=== PATIENT | female | born 2000 | race Two or more races ===

== ENCOUNTER 2024-09-05 23:30 | Emergency (ER) | payer MEDICAID, SELFPAY ==
[2024-09-06 00:01] VITALS: BP 111/75; PULSE 90; RESP 18; TEMP 36.6
--- NOTE | 2024-09-06 00:27 | EDRME_ITS ---
Rapid Medical Screening Exam [facility] Arrival date/time: 09/05/24 23:30 23F with history of cholecystectomy presents to ED with 2 days of gen ab pain and some N/V. Patient denies dysuria, vaginal bleeding, and constipation. Chief Complaint: Abdominal Pain Vital signs: Vital Signs Temperature 98 F 09/06/24 00:01 Pulse Rate 90 09/06/24 00:01 Respiratory Rate 18 09/06/24 00:01 Blood Pressure 111/75 09/06/24 00:01 Oxygen Delivery Method Room Air 09/06/24 00:01
[2024-09-06 00:51] LABS: Collection Type, Urine Clean Catch
[2024-09-06 01:17] LABS: Alanine Aminotransferase 60 U/L (10-49); Albumin, Serum 4.6 gm/dL (3.5-5.0); Albumin/Globulin Ratio 1.8 (1.2-2.2); Alkaline Phosphatase 80 U/L (46-116); Anion Gap 3 (7-16); Aspartate Amino Transferase 36 U/L (0-34); BUN/Creatinine Ratio 9 Ratio (12-20); Bilirubin,Total 0.9 mg/dL (0.3-1.2); Blood Urea Nitrogen 11 mg/dL (9-23); Calcium 9.7 mg/dL (8.3-10.6); Calcium (Corrected) 9.7 mg/dL (8.5-10.1); Carbon Dioxide 30.7 mMol/L (20.0-31.0); Chloride 105 mMol/L (98-107); Creatinine (Component) 1.2 mg/dL (0.6-1.3); Globulin 2.6 gm/dL (2.3-3.5); Glucose 92 mg/dL (74-106); Lipase 41 U/L (12-53); Osmolality,Calculated 276 (275-295); Potassium 3.8 mMol/L (3.4-5.1); Sodium 139 mMol/L (136-145); Total Protein 7.2 gm/dL (5.7-8.2); eGFR > 60 See Note
[2024-09-06 01:49] LABS: Basophils % (Auto) 0 % (0-2.5); Eosinophils # (Auto) 0.2 Thou/mm3 (0.0-0.5); Eosinophils % (Auto) 3 % (0-10); Hematocrit 35.9 % (36.0-46.0); Hemoglobin 12.4 g/dL (12.0-16.0); Immature Granulocytes % (Auto) 0 % (0-0); Immature Granulocytes Auto 0.02 Thou/mm3 (0.00-0.00); Lymphocytes # (Auto) 3.1 Thou/mm3 (1.0-4.8); Lymphocytes % (Auto) 34 % (10-50); Mean Corpuscular HGB Conc 34.5 g/dl (31.0-37.0); Mean Corpuscular Hemoglobin 29.7 pg (25.0-35.0); Mean Corpuscular Volume 86 fL (80-100); Monocytes % (Auto) 11 % (0-12); Neutrophils # (Auto) 4.6 Thou/mm3 (1.8-7.7); Neutrophils % (Auto) 52 % (37-80); Nucleated Red Blood Cell % 0 /100 WBC (0); Platelet Count 400 Thou/mm3 (140-440); RDW Standard Deviation 40.9 fL (36.4-46.3); Red Blood Count 4.17 Miln/mm3 (4.00-5.20); White Blood Count 8.9 Thou/mm3 (3.6-11.0)
[2024-09-06 01:58] LABS: Bilirubin,Urine Negative (Negative); Blood,Urine Negative (Negative); Clarity,Urine Clear (Clear/Hazy); Color,Urine Yellow (Lt Yel-Yel); Glucose, Urine Negative (Negative); Ketones,Urine Trace (Negative); Leukocyte Esterase,Urine Negative (Negative); Nitrite,Urine Negative (Negative); PH,Urine 7.5 (5.0-7.0); Protein,Urine 1+ (Neg - Trace); RBC,Urine 4 /hpf (0-3); Squamous Epithelial Cell,Urine 1 /hpf (0-5); WBC,Urine 2 /hpf (0-5)
[2024-09-06 01:59] LABS: HCG Qualitative,Urine Negative
[2024-09-06 02:17] VITALS: BP 108/69; PULSE 91; RESP 18; TEMP 36.6
--- NOTE | 2024-09-06 03:25 | EDNOTE_ITS ---
ED Abdominal Pain RME/HPI General Chief Complaint: Abdominal Pain Stated complaint: ABD PAIN Arrival date/time: 09/05/24 23:30 Limitations: no limitations RME / HPI RME / HPI narrative: 09/05/24 23:30 23F with history of cholecystectomy presents to ED with 2 days of gen ab pain and some N/V. Patient denies dysuria, vaginal bleeding, and constipation. Dr. Tom's Main ED Evaluation: 23-year-old female with last menstrual period 1 month ago that was normal, history of cholecystectomy presents with 2 days of general abdominal pain is 5 out of 10 with no radiation and associated nausea and vomiting x 1. Patient states no bilious or bright red blood in the vomit. No blood in her stool. Patient has no vaginal discharge or vaginal bleeding. She had a bowel movement yesterday is not complaining of constipation. Pain is not improved or worsened with anything specific. No shortness of breath. Patient has not had pain like this in the past. Related Data Home Medications ?Medication ?Instructions ?Recorded ?Confirmed acetaminophen 325 mg tablet 650 mg PO QID PRN Pain 01/08/24 01/08/24 (Tylenol) Previous Rx's ?Medication ?Instructions ?Recorded ibuprofen 800 mg tablet 800 mg PO Q8H PRN pain #30 tabs 09/09/23 Allergies Allergy/AdvReac Type Severity Reaction Status Date / Time No Known Allergies Allergy Verified 09/05/24 23:33 Review of Systems Review of Systems Systems Reviewed: All systems reviewed, normal except as documented Past Medical History Past Medical History NEUROLOGIC: Negative Neurological Disorders or Seizures CARDIAC: Negative Cardiac Disorders or Congestive Heart Failure RESPIRATORY: Negative Chronic Obstructive Pulmonary Disease (COPD) or Asthma GASTROINTESTINAL: Positive Gastrointestinal Disorders, Gall Bladder Disease and Obesity GENITOURINARY: Negative Genitourinary Disorders or Renal Disease REPRODUCTIVE: Positive Previous Pregnancies MUSCULOSKELETAL: Negative Musculoskeletal Disorders ENDOCRINE: Negative Endocrine Disorders, Diabetes Mellitus Type 1 or Diabetes Mellitus Type 2 HEMATOLOGIC: Negative Blood Disorders or Sickle Cell Disease OTHER HISTORY: Negative Autoimmune Disease, Blood Transfusions, Blood Transfusion Reaction, Anesthesia Reactions or Cancer Family History FAMILY HISTORY: Negative Family Psychiatric Problems, Family Respiratory Disorders, Family Cardiac Disorders, Family Gastrointestinal Problems, Family Cancer, Family Surgery or Family Anesthesia Reaction Social History SMOKING STATUS: Never smoker ED Exam General Limitations: Present no limitations General appearance: Present alert and in no apparent distress Head Head exam: Present atraumatic Eye Eye exam: Present normal appearance, PERRL and EOMI ENT ENT exam: Present normal exam, normal oropharynx and mucous membranes moist Neck Neck exam: Present normal inspection, full ROM and trachea midline Chest Chest inspection: Present normal inspection and symmetric chest wall rise Respiratory Respiratory exam: Present normal lung sounds bilaterally Cardiovascular Cardiovascular exam: Present regular rate, normal rhythm and normal heart sounds Abdominal Exam Abdominal exam: Present soft and normal bowel sounds Extremities Exam Extremities exam: Present normal inspection and full ROM Back Exam Back exam: Present normal inspection and full ROM Neurological Exam Neurological exam: Present alert, oriented X3 and CN II-XII intact Psychiatric Psychiatric exam: Present normal affect and normal mood Skin Skin exam: Present warm, dry, intact and normal color Course Quality Measures none Orders Category Date Time Status CT Screening NOW Care 09/06/24 03:[address] abdomen pelvis w con Stat Exams 09/06/24 03:26 Completed CBC Stat Lab 09/06/24 00:49 Completed CMP [Comprehensive Metabolic Panel] Stat Lab 09/06/24 00:49 Completed HCG Qualitative,Urine Stat Lab 09/06/24 00:34 Completed Lipase Stat Lab 09/06/24 00:49 Completed UA [Urinalysis] Stat Lab 09/06/24 00:34 Completed Ketorolac Inj [Toradol Inj] Med 09/06/24 03:27 Discontinued 15 mg IVP X1 ONE Vital Signs Vital signs: Vital Signs Temperature 98 F 09/06/24 00:01 Pulse Rate 90 09/06/24 00:01 Respiratory Rate 18 09/06/24 00:01 Blood Pressure 111/75 09/06/24 00:01 Oxygen Delivery Method Room Air 09/06/24 00:01 Pulse ox is 98% on room air, which is normal according to my interpretation. Abdominal Pain MDM MDM Narrative MDM Narrative:: 23-year-old female with abdominal pain, not , with differential diagnosis includes appendicitis, ovarian cyst, gallbladder disease biliary colic. Patient has a CT scan and Toradol. 0500: CT scan there is no have appendicitis or acute intra-abdominal pathology. Toradol and feels better. Tolerated p.o. Patient data External records reviewed:: [facility] previous records (Per chart review, patient was seen here on 01/27/24 for wound care.) Clinical information provided by:: patient Social determinants that could affect healthcare access:: none Patient has the following chronic illnesses:: none How is presenting disease/condition affected by chronic disease/condition?: no chronic disease Evaluation data The following diagnostics were reviewed and interpreted by me:: lab results and radiology exam(s) Lab and/or radiology exams considered but not ordered:: none Interpretation Summary: CBC is normal, CMP is normal, UA is unremarkable, HCG is negative, lipase is normal, according to my interpretation. ----- I have personally reviewed the radiology data and agree with the radiologist's interpretation below: Telerad Preliminary Report Draft Patient: JAYNE TSE Record#: [id number] Birthdate: 2000 Age/Sex: 23 / F Location: [facility] Attending Dr: Ordering Physician: Date of Service: Procedure(s): Accession Number(s): cc: ~ CT scan of the abdomen and pelvis with intravenous contrast (axial sections with sagittal and coronal reformats) September 06, 2024 0407 hours Clinical History: ABDOMINAL PAIN, R/P APPY No prior study is available for comparison. Findings: The lung bases are clear. The gallbladder is surgically absent. The liver,pancreas, spleen, kidneys and adrenals are unremarkable. No evidence of bowel obstruction. The appendix is within normal limits (coronal images 60-68/160). There are multiple prominent mesenteric lymph nodes. The urinary bladder is unremarkable.The uterus and adnexa are unremarkable. There is no free fluid or free air. The osseous structures are unremarkable. Impression: No evidence of appendicitis or other acute intra-abdominal/pelvic pathology. Other findings as described above. Report Electronically Signed By: Rodney Garcia 09/06/2024 5:05:19 AM [EST] Medications / Prescriptions Medications or Prescriptions considered but not ordered:: none Medication administrations:: Medication Administration History Discontinued Medications Ketorolac Tromethamine (Ketorolac Inj 30 Mg/Ml Vial) 15 mg IVP X1 ONE Stop: 09/06/24 03:28 Last Admin: 09/06/24 03:33 Dose: 15 mg Documented By: SUDHIR see above Consultations Consultation(s) initiated? (list below): No Diagnosis Differential diagnosis abdominal pain: abdominal pain, endometriosis and other (cyst) Most likely diagnosis given after review of the tests above:: vaginal bleeding Admission Indicated Admission indicated?: not indicated Admission Request Was there a request for admission?: No Disposition Plan Disposition Plan: Discharge Discharge Attestation Discharge Attestation: The patient and all family members were given an opportunity to ask questions and understood the discharge instructions. Discharge instructions specifically effects, indications for sooner follow up or return to the emergency department, and the expected course of current diagnosis. Patient condition: Stable Discharge Plan Plan Patient Disposition: HOME (Self Care) Patient condition on transfer: Stable Prescriptions/Referrals Prescriptions/Med Rec: No Action ibuprofen 800 mg tablet 800 mg PO Q8H PRN (Reason: pain) Qty: 30 0RF acetaminophen [Tylenol] 325 mg Tablet 650 mg PO QID PRN (Reason: Pain) Referrals: Scot Torres MD [Primary Care Provider] - In 1 week Problem List Clinical Impression: Abdominal pain Patient/Caregiver Discharge Instructions Diet Instructions: Stay hydrated Pedialyte and Gatorade. Education Materials: Communicating About Pain Additional Instructions: Return to the emergency department if worsening symptoms or other concerns. Avoid greasy or fatty foods. You can take [id number] Tylenol as needed for pain. Today your CAT scan did not show that you have appendicitis and no pelvic cyst. Avoid greasy or greasy foods in the last next 2 days. Print Language: Japanese Stand Alone Forms: Jennifer Award Info., Patient Portal Info Letter
--- NOTE | 2024-09-06 03:26 | XR_ITS ---
Examination: CT abdomen with intravenous contrast CT pelvis with intravenous contrast 2-D coronal reconstructions 2-D sagittal reconstructions Date and time of exam:September 06, 2024 at 0407 hrs. Indications: Onset right lower abdominal pain today. CTDI: vol (mGy) 12.1 DLP: (mGycm) 726 Technique: Multiple axial sections of the abdomen and pelvis have been obtained. 64 slice high-resolution scanner used. 3 mm axial sections have been obtained, post intravenous injection 60 cc [id number] 2-D sagittal, coronal reconstructions obtained. Low dose protocols were performed. One or more of the following dose reduction techniques were used; automated exposure control, adjustment of the mA and/or KV according to patient size, use of iterative reconstruction technique. Findings: No focal liver or splenic lesion Absent gallbladder No pancreatic or adrenal mass No renal or ureteral calculi, no hydronephrosis Aorta normal size Normal appendix Small lymph nodes in the right lower mesentery Anteverted uterus No pelvic mass Bladder intact Osseous structures intact Impression: Normal appendix No acute process in the abdomen or pelvis
[2024-09-06] MEDS: KETOROLAC INJ 30 MG/ML VIAL 15 MG IVP (03:33)
[2024-09-06 04:45] VITALS: BP 112/69; PULSE 78; RESP 18; TEMP 36.6; O2SAT 99
--- NOTE | 2024-09-06 05:06 | PRELIM_ITS ---
CT scan of the abdomen and pelvis with intravenous contrast (axial sections with sagittal and coronal reformats) September 06, 2024 0407 hoursClinical History: ABDOMINAL PAIN, R/P APPYNo prior study is a vailable for comparison. Findings:The lung bases are clear.The gallbladder is surgically absent. The liver,pancreas, spleen, kidneys and adrenals are unremarkable.No evidence of bowel obstruction. The a ppendix is within normal limits (coronal images 60-68/160). There are multiple prominent mesenteric l ymph nodes. The urinary bladder is unremarkable.The uterus and adnexa are unremarkable. There is no f ree fluid or free air.The osseous structures are unremarkable.Impression:No evidence of appendicitis or other acute intra-abdominal/pelvic pathology. Other findings as described above. Report Radha gonzales Signed By: Rodney Garcia 09/06/2024 5:05:19 AM [EST]
[2024-09-06 05:18] VITALS: BP 101/60; PULSE 82; RESP 18; TEMP 36.7; O2SAT 98
== END 2024-09-06 05:19 | disposition home or self-care (01) ==
PROVIDERS: Physician Assistant; Emergency Provider Emergency Medicine; PCP Family Medicine
DX: R10.31 Right lower quadrant pain (principal)
CPT/HCPCS: 36415; 74177; 80053; 81001; 81025; 83690; 85025; 96374; 99285; A4649; J1885; Q9967

== ENCOUNTER 2025-07-06 21:46 | Emergency (ER) | payer MEDICAID, SELFPAY ==
[2025-07-06 21:49] VITALS: BMI 36.8
--- NOTE | 2025-07-06 22:39 | EKG_ITS ---
[facility] Test Date: 2025-07-06 Pat Name: JAYNE TSE Department: Room: - Gender: Female [employer] Operator: : 2000 Requested By: ED Temporary Provider Order Number: [id number] Reading MD: ED Temporary Provider Measurements Intervals [place] Rate: 80 P: 35 WV: 122 QRS: 44 QRSD: 89 T: 4 QT: 355 QTc: 410 Interpretive Statements SINUS RHYTHM MODERATE T-WAVE ABNORMALITY, CONSIDER ANTERIOR ISCHEMIA [-0.1+ mV T-WAVE IN V3/V4] No previous ECG available for comparison /store/S0/[id number]/[id number].pdf
[2025-07-06 22:42] VITALS: BP 117/77; PULSE 81; RESP 18; TEMP 36.7; O2SAT 99
--- NOTE | 2025-07-06 23:30 | PD.EDRME ---
Rapid Medical Screening Exam RME Arrival date/time: 07/06/25 21:46 This is a case of 34-year-old female who came into the emergency room due to chest pain for 3 days patient is 24 weeks denies any abdominal pain denies any vaginal bleeding persistence of the symptoms this patient decided to start consult here in the emergency room Chief Complaint: Chest Pain Time Seen by Provider: 07/06/25 23:13 Vital signs: Vital Signs Temperature 98.1 F 07/06/25 22:42 Pulse Rate 81 07/06/25 22:42 Respiratory Rate 18 07/06/25 22:42 Blood Pressure 117/77 07/06/25 22:42 Pulse Oximetry (%) 99 07/06/25 22:42 Oxygen Delivery Method Room Air 07/06/25 22:42
--- NOTE | 2025-07-06 23:52 | XR_ITS ---
Examination: Complete OB ultrasound greater than 14 weeks Date and time of exam: July 07, 2025, 11:55 PM Indications: Epigastric pain today Findings: Viable intrauterine single fetus with single amniotic sac presentation cephalic Cardiac motion 145 BPM Placenta posterior grade 1. Umbilical cord insertion seen. Amniotic fluid index 11.1 cm Cervix 3.7 cm Ovaries obscured by the fetus. Composite estimated gestational age based on BPD, head circumference, abdominal circumference, femur length is 27 weeks 3 days, estimated weight 1061.1 g. Survey of intracranial anatomy, spinal anatomy, abdominal anatomy, four-chamber heart performed with no abnormalities identified. Impression: Viable intrauterine gestation cephalic presentation.
[2025-07-07 00:20] LABS: Basophils # (Auto) 0.0 Thou/mm3 (0.0-0.2); Basophils % (Auto) 0 % (0-2.5); Eosinophils # (Auto) 0.2 Thou/mm3 (0.0-0.5); Eosinophils % (Auto) 2 % (0-10); Hematocrit 34.2 % (36.0-46.0); Hemoglobin 11.5 g/dL (12.0-16.0); Immature Granulocytes Auto 0.08 Thou/mm3 (0.00-0.00); Lymphocytes # (Auto) 2.7 Thou/mm3 (1.0-4.8); Lymphocytes % (Auto) 22 % (10-50); Mean Corpuscular HGB Conc 33.6 g/dl (31.0-37.0); Mean Corpuscular Hemoglobin 29.9 pg (25.0-35.0); Mean Corpuscular Volume 89 fL (80-100); Monocytes # (Auto) 1.1 Thou/mm3 (0.0-0.8); Monocytes % (Auto) 8 % (0-12); Neutrophils # (Auto) 8.5 Thou/mm3 (1.8-7.7); Neutrophils % (Auto) 68 % (37-80); Nucleated Red Blood Cell # 0.00 Thou/mm3 (0.00-0.00); Nucleated Red Blood Cell % 0 /100 WBC (0); Platelet Count 441 Thou/mm3 (140-440); RDW Standard Deviation 41.8 fL (36.4-46.3); Red Blood Count 3.85 Miln/mm3 (4.00-5.20); White Blood Count 12.5 Thou/mm3 (3.6-11.0)
[2025-07-07 00:43] LABS: B-Type Natriuretic Peptide < 20 pg/mL (0-100)
[2025-07-07 00:49] LABS: Alanine Aminotransferase 18 U/L (10-49); Albumin, Serum 4.0 gm/dL (3.5-5.0); Albumin/Globulin Ratio 1.5 (1.2-2.2); Alkaline Phosphatase 105 U/L (46-116); Anion Gap 11 (7-16); Aspartate Amino Transferase 14 U/L (0-34); BUN/Creatinine Ratio 8 Ratio (12-20); Bilirubin,Total 0.5 mg/dL (0.3-1.2); Blood Urea Nitrogen 5 mg/dL (9-23); Calcium 9.7 mg/dL (8.3-10.6); Calcium (Corrected) 9.7 mg/dL (8.5-10.1); Carbon Dioxide 23.6 mMol/L (20.0-31.0); Chloride 105 mMol/L (98-107); Creatinine (Component) 0.6 mg/dL (0.6-1.3); Estimated Creatinine Clearance 168.1 mL/min (>60); Globulin 2.6 gm/dL (2.3-3.5); Glucose 101 mg/dL (74-106); Osmolality,Calculated 276 (275-295); Potassium 3.7 mMol/L (3.4-5.1); Sodium 140 mMol/L (136-145); Total Protein 6.6 gm/dL (5.7-8.2); Troponin I < 0.002 ng/mL (0.0-0.045); eGFR > 60 See Note
[2025-07-07 01:01] LABS: Collection Type, Urine Clean Catch
[2025-07-07 01:12] LABS: Beta HCG,Quantitative 8228 mIU/mL (<5.0)
[2025-07-07 01:26] LABS: Bacteria,Urine Rare; Bilirubin,Urine Negative (Negative); Blood,Urine Negative (Negative); Calcium Oxalate Crystals,Urine 2+; Color,Urine Yellow (Lt Yel-Yel); Glucose, Urine Negative (Negative); Ketones,Urine Negative (Negative); Leukocyte Esterase,Urine Negative (Negative); Nitrite,Urine Negative (Negative); PH,Urine 6.0 (5.0-7.0); Protein,Urine Trace (Neg - Trace); RBC,Urine 6 /hpf (0-3); Specific Gravity,Urine 1.019 (1.001-1.035); Squamous Epithelial Cell,Urine 33 /hpf (0-5); Urobilinogen,Urine Negative mg/dL (0.0-1.0); WBC,Urine 8 /hpf (0-5)
[2025-07-07 01:28] LABS: Clarity,Urine Cloudy (Clear/Hazy)
--- NOTE | 2025-07-07 01:29 | PRELIM_ITS ---
Obstetric ultrasound. July 06, 2025 2350 hours Clinical history: Rule out demise Findings: There is a gravid uterus with a live fetus in cephalicpresentation of mean gestational age 27weeks and 3days (by biometry). cardiac activity is present at a heart rate of 145beats per minute. The placenta is posteriorin location, maturity grade 1. There is no evidence of placenta previa or retroplacental hemorrhage.The cervical length is 3.7cm. Amniotic fluid is adequate (JOSELINE = 11.1cm). Estimated weight is 1061.1grams. Estimated due date by ultrasound is 10/02/2025. 4 chamber heart is seen. 3-vessel umbilical cord is seen. The stomach, spine, bladder is seen. Impression: Gravid uterus with a single live fetus in cephalicpresentation of mean gestational age 27 weeks 3 days. Report Electronically Signed By: Srini Canales 07/07/2025 1:29:29 AM [EST]
--- NOTE | 2025-07-07 01:37 | PD.EDCHEST ---
ED Chest Pain RME/HPI General Chief Complaint: Chest Pain Stated Complaint: CHEST PAIN DYSPNEA Time Seen by Provider: 07/06/25 23:13 Arrival date/time: 07/06/25 21:46 RME / HPI RME / HPI narrative: 07/06/25 21:46 This is a case of 34-year-old female who came into the emergency room due to chest pain for 3 days patient is 24 weeks denies any abdominal pain denies any vaginal bleeding persistence of the symptoms this patient decided to start consult here in the emergency room Dr. Tse?s Main ED Evaluation: 24yo female with EGA 24 weeks presenting with ongoing flu-like symptoms (chills, nasal congestion, cough), but denies any body aches x 4 days. Patient has left parasternal chest pain with pleuritic component. No dizziness, lightheadedness, palpitations, or near syncope. PMH includes glucose intolerance. PSH includes cholecystectomy. Social history unremarkable. NKDA. Related Data Home Medications ?Medication ?Instructions ?Recorded ?Confirmed acetaminophen 325 mg tablet 650 mg PO QID PRN Pain 01/08/24 01/08/24 (Tylenol) Previous Rx's ?Medication ?Instructions ?Recorded ibuprofen 800 mg tablet 800 mg PO Q8H PRN pain #30 tabs 09/09/23 acetaminophen 120 mg-codeine 12 5 ml PO Q6H PRN pain #200 mL 07/07/25 mg/5 mL (5 mL) oral solution prednisolone 15 mg/5 mL oral 45 mg (15 mL) PO QDAY 5 days #75 mL 07/07/25 solution Allergies Allergy/AdvReac Type Severity Reaction Status Date / Time No Known Allergies Allergy Verified 07/06/25 21:54 Review of Systems Review of Systems Systems Reviewed: All systems reviewed, normal except as documented Past Medical History Past Medical History NEUROLOGIC: Negative Neurological Disorders or Seizures CARDIAC: Negative Cardiac Disorders or Congestive Heart Failure RESPIRATORY: Negative Chronic Obstructive Pulmonary Disease (COPD) or Asthma GASTROINTESTINAL: Positive Gastrointestinal Disorders, Gall Bladder Disease and Obesity GENITOURINARY: Negative Genitourinary Disorders or Renal Disease REPRODUCTIVE: Positive Previous Pregnancies MUSCULOSKELETAL: Negative Musculoskeletal Disorders ENDOCRINE: Negative Endocrine Disorders, Diabetes Mellitus Type 1 or Diabetes Mellitus Type 2 HEMATOLOGIC: Negative Blood Disorders or Sickle Cell Disease OTHER HISTORY: Negative Autoimmune Disease, Blood Transfusions, Blood Transfusion Reaction, Anesthesia Reactions or Cancer Family History FAMILY HISTORY: Negative Family Psychiatric Problems, Family Respiratory Disorders, Family Cardiac Disorders, Family Gastrointestinal Problems, Family Cancer, Family Surgery or Family Anesthesia Reaction Social History SMOKING STATUS: Never smoker ED Exam Narrative Physical exam: GENERAL APPEARANCE: alert and oriented x 4, well-developed, well-nourished, no acute distress VITALS: All vitals were reviewed and the pulse ox is 99% on room air, which is normal according to my interpretation. HEENT: Normocephalic, atraumatic; pupils equal, round, reactive to light; EOMI; mucous membranes pink, moist; erythema to the posterior pharynx with punctate vesicles, no exudative lesions or tonsillar hypertrophy, no submandibular adenopathy NECK: Supple LUNGS: CTABL; no wheezes, no rales, no rhonchi CHEST: reproducible tenderness to the left parasternal region without any crepitus or step-off HEART: Regular rate, regular rhythm; normal S1, S2; no murmurs ABDOMEN: non distended; normal BS; soft, no tenderness, no guarding, no rebound; no masses, no organomegaly, no hernia BACK: no CVA tenderness EXTREMITIES: atraumatic; no edema; no swelling to the BUE or BLE NEUROLOGIC: awake; alert and oriented x4; cranial nerves II-XII grossly intact; no focal sensory or motor deficits PSYCHIATRIC: appropriate mood and affect SKIN: warm, dry, normal color; no rashes Course Quality Measures none Orders Category Date Time Status EKG (ED ONLY) *Do not use* NOW Care 07/06/25 22:39 Completed EKG (ED Only) Stat Exams 07/06/25 22:39 Draft US OB >= 14 weeks Fetus Stat Exams 07/06/25 23:52 Taken ABO/RH Type Stat Lab 07/06/25 23:29 Completed BNP [B-Type Natriuretic Peptide] Stat Lab 07/06/25 23:29 Completed Beta HCG,Quantitative Stat Lab 07/06/25 23:28 Completed CBC Stat Lab 07/06/25 23:28 Completed Comprehensive Metabolic Panel Stat Lab 07/06/25 23:28 Completed Troponin I Stat Lab 07/06/25 23:28 Completed Urinalysis Stat Lab 07/06/25 00:47 Completed Vital Signs Vital signs: Vital Signs Temperature 98.1 F 07/06/25 22:42 Pulse Rate 81 07/06/25 22:42 Respiratory Rate 18 07/06/25 22:42 Blood Pressure 117/77 07/06/25 22:42 Pulse Oximetry (%) 99 07/06/25 22:42 Oxygen Delivery Method Room Air 07/06/25 22:42 Chest Pain MDM Narrative MDM Narrative:: Scribe Attestation: 07/07/25 Ama Hall am scribing for and in the presence of Dr. Tse. 24yo female with EGA 24 weeks presenting with ongoing flu-like symptoms (chills, nasal congestion, cough), but denies any body aches x 4 days. Patient has left parasternal chest pain with pleuritic component. Please see PE findings. Lab markers demonstrate WBC count 12.5, mild anemia with Hgb 11.5, slight thrombocytosis with Plt count of 441. Chemistries unremarkable, troponin and BNP undetected. UA contaminated. EKG demonstrates nonpathological T-wave inversions and normal axis. In the absence of tachycardia, tachypnea, and hypoxia, will not pursue the diagnosis of PE at this time. Chest pain appears to be reproducible likely secondary to pleurisy. Of note, patient had a stress test performed which was remarkable. Patient is stable to be discharged home. Will prescribe Prelone and Tylenol with Codeine. Precaution instructions issued. Dx: pleurisy Patient data External records reviewed:: [facility] previous records (Per chart review, patient was seen here on 09/06/24 for abdominal pain.) Clinical information provided by:: patient Social determinants that could affect healthcare access:: none Patient has the following chronic illnesses:: none How is presenting disease/condition affected by chronic disease/condition?: no chronic disease Evaluation data The following diagnostics were reviewed and interpreted by me:: lab results, radiology exam(s) and EKG tracing(s) Lab and/or radiology exams considered but not ordered:: none Interpretation Summary: EKG done at 2245, sinus rhythm, rate of 80, asymmetric T-wave inversions without ST depression in inferior septal leads, no ectopy, normal axis, according to my interpretation. Telerad Preliminary Report Draft Patient: JAYNE TSE. Record#: [id number] Birthdate: 2000 Age/Sex: 24 / F Location: [facility] Attending Dr: Ordering Physician: Date of Service: Procedure(s): Accession Number(s): cc: ~ Obstetric ultrasound. July 06, 2025 2350 hours Clinical history: Rule out demise Findings: There is a gravid uterus with a live fetus in cephalicpresentation of mean gestational age 27weeks and 3days (by biometry). cardiac activity is present at a heart rate of 145beats per minute. The placenta is posteriorin location, maturity grade 1. There is no evidence of placenta previa or retroplacental hemorrhage.The cervical length is 3.7cm. Amniotic fluid is adequate (JOSELINE = 11.1cm). Estimated weight is 1061.1grams. Estimated due date by ultrasound is 10/02/2025. 4 chamber heart is seen. 3-vessel umbilical cord is seen. The stomach, spine, bladder is seen. Impression: Gravid uterus with a single live fetus in cephalicpresentation of mean gestational age 27 weeks 3 days. Report Electronically Signed By: Srini Canales 07/07/2025 1:29:29 AM [EST] Medications / Prescriptions Medications or Prescriptions considered but not ordered:: none Medication administrations:: none Consultations Consultation(s) initiated? (list below): No Diagnosis Chest Pain Differential Diagnosis: pneumothorax, atypical chest pain, st elevation myocardial infarction, costochondritis and other (NSTEMI, pleurisy) Most likely diagnosis given after review of the tests above:: see clinical impression below Admission Indicated Admission indicated?: not indicated Admission Request Was there a request for admission?: No Disposition Plan Disposition Plan: Discharge Discharge Attestation Discharge Attestation: The patient and all family members were given an opportunity to ask questions and understood the discharge instructions. Discharge instructions specifically effects, indications for sooner follow up or return to the emergency department, and the expected course of current diagnosis. Patient condition: Stable Discharge Plan Plan Patient Disposition: HOME (Self Care) Prescriptions/Referrals Prescriptions/Med Rec: New prednisolone 15 mg/5 mL solution 45 mg PO QDAY 5 Days Qty: 75 0RF acetaminophen-codeine 120 mg-12 mg /5 mL (5 mL) solution 5 ml PO Q6H PRN (Reason: pain) Qty: 200 0RF No Action ibuprofen 800 mg tablet 800 mg PO Q8H PRN (Reason: pain) Qty: 30 0RF acetaminophen [Tylenol] 325 mg Tablet 650 mg PO QID PRN (Reason: Pain) Referrals: No Primary/Family,Physician [Primary Care Provider] - In 1 week Problem List Clinical Impression: Pleurisy, Systemic viral illness Patient/Caregiver Discharge Instructions Discharge Activity: activity as tolerated Diet Instructions: Force fluids Education Materials: ED Pleurisy, ED Viral Syndrome (Adult) Additional Instructions: Reports/medication as directed/follow-up with [facility] [employer] physician within 7 to 10 days as needed return if worsening Print Language: Danish
[2025-07-07] MEDS: prednisoLONE LIQD 15 MG/5 ML UDC 45 MG PO (02:15)
== END 2025-07-07 02:31 | disposition home or self-care (01) ==
PROVIDERS: Nurse Practitioner Family; Emergency Provider Emergency Medicine
DX: O98.512 Other viral diseases complicating pregnancy, second trimester (principal); B34.9 Viral infection, unspecified; O26.892 Other specified pregnancy related conditions, second trimester; R09.1 Pleurisy; Z3A.27 27 weeks gestation of pregnancy
CPT/HCPCS: 36415; 76805; 80053; 81001; 83880; 84484; 84702; 85025; 86900; 86901; 93005; 99284; J7510

== ENCOUNTER 2025-08-26 13:00 | Observation (INO) | payer MEDICAID, SELFPAY ==
[2025-08-26] VITALS (20 sets, daily range): BP systolic 123; BP diastolic 72; PULSE 81–101; RESP 18–99; TEMP 37.2; O2SAT 92–99; BMI 38.2
--- NOTE | 2025-08-26 13:56 | XR_ITS ---
Examination: Complete OB ultrasound greater than 14 weeks Date and time of exam: 08/26/2025, 12/11 p.m. INDICATION: Contractions and leaking today COMPARISON: OB ultrasound 07/06/2025. Findings: Viable intrauterine single fetus with single amniotic sac in cephalic position. cardiac cavity = 136 bpm. Composite estimated gestational age based on BPD, head circumference, abdominal circumference, femur length is 34 weeks, 3 days. Sonographic GINGER 10/04/2025. Clinical age is 34 weeks 4 days and clinical GINGER 10/03/2025. EFW = 2409.8 g +/-357 g. Fundal placenta, grade 2. No abruption. JOSELINE = 9.5 cm. Survey of intracranial anatomy, spinal anatomy, abdominal anatomy, four-chamber heart performed with no abnormalities identified. The left renal pelvis measures 3 mm wide but otherwise no hydronephrosis by size criteria. The maternal right ovary measures after 3.4 cm and the maternal left ovary measures up to 3.9 cm. Both maternal ovaries demonstrate intact blood flow bilaterally. IMPRESSION: Single live IUP in cephalic position. No acute abnormalities detected. Appropriate interval growth.
[2025-08-26 14:01] LABS: Collection Type, Urine Clean Catch
[2025-08-26 14:18] LABS: ROM Kit Exp Date# 041128; ROM Kit Lot # 53106258; ROM Swab Mixed By: CR; Swb Mxed in Solvent 1 min? Yes
[2025-08-26 14:19] LABS: Rupture of Fetal Membranes Negative (Negative)
[2025-08-26 15:08] LABS: Bilirubin,Urine Negative (Negative); Blood,Urine Negative (Negative); Clarity,Urine Clear (Clear/Hazy); Color,Urine Colorless (Lt Yel-Yel); Glucose, Urine Negative (Negative); Ketones,Urine Negative (Negative); Leukocyte Esterase,Urine Negative (Negative); Nitrite,Urine Negative (Negative); PH,Urine 7.0 (5.0-7.0); Protein,Urine Negative (Neg - Trace); RBC,Urine 1 /hpf (0-3); Specific Gravity,Urine 1.006 (1.001-1.035); Squamous Epithelial Cell,Urine 1 /hpf (0-5); Urobilinogen,Urine Negative mg/dL (0.0-1.0); WBC,Urine < 1 /hpf (0-5)
== END 2025-08-26 15:23 | disposition home or self-care (01) ==
PROVIDERS: Admitting Provider Specialist; Visit Provider Specialist
DX: O47.03 False labor before 37 completed weeks of gestation, third trimester (principal); Z3A.34 34 weeks gestation of pregnancy
CPT/HCPCS: 59025; 59899; 76805; 81001; 84112; 87086

== ENCOUNTER 2025-09-25 11:34 | Inpatient (IN) | payer MEDICAID, SELFPAY ==
[2025-09-25] VITALS (47 sets, daily range): BP systolic 103–143; BP diastolic 58–92; PULSE 83–123; RESP 17–96; TEMP 36.8–37.1; O2SAT 89–100; BMI 39.2
[2025-09-25] MEDS: RINGERS LACTATED 1000 ML 1,000 ML 100 ML IV (12:50)
--- NOTE | 2025-09-25 12:52 | PD.LDHP ---
Documentation for date of: 09/25/25 OB Labor/Induct. HPI History of Present Illness : 2 Para: 1 Term pregnancies: 1 pregnancies: 0 Living children: 1 History of Abortions: Spontaneous and Elective: 0 History of Vaginal deliveries: 1 History of sections: No History of : No Date of last menstrual period: 12/27/24 GINGER: 10/03/25 Gestational age based on last menstrual period: 38 History of present illness: Dictated STAT line in [facility] #9: [id number] History of Present Adequate Care: Yes Past Medical History Surgical History SURGICAL: Negative Section Meds Home Medications and Allergies Home Medications ?Medication ?Instructions ?Recorded ?Confirmed ?Type vrtvlad-vtrp-CK 40 mg-1 1 tab PO .PO 08/26/25 08/26/25 History mg chewable tablet Allergies Allergy/AdvReac Type Severity Reaction Status Date / Time No Known Allergies Allergy Verified 09/25/25 12:16 OB Exam Physical Exam Vital signs: Temp Pulse Resp BP Pulse Ox 98.2 F 86 18 119/80 99 09/25/25 11:44 09/25/25 12:46 09/25/25 11:44 09/25/25 12:46 09/25/25 12:26
--- NOTE | 2025-09-25 13:01 | ESHP_ITS ---
RE: JAYNE TSE : 2000 DATE OF ADMISSION: 09/25/2025 HISTORY OF PRESENT ILLNESS: This is a 24-year-old 2, para 1-0-0-1, with due date of 10/03 with intrauterine at 38 weeks and 6 days, who presents to labor and delivery complaining of contractions and is noted to be in labor. She is a gestational diabetic, diet-controlled. Her most recent ultrasound on 09/11 showed overall growth at the 30th percentile. She denies any leaking or bleeding. She reports normal movement. ALLERGIES: NO KNOWN DRUG ALLERGIES. MEDICATIONS: multivitamin 1 p.o. daily. PAST MEDICAL HISTORY: Gestational diabetes mellitus class A1. Lumbosacral back pain. Rubella non-immune. FAMILY HISTORY: Denies. PAST SURGICAL HISTORY: Cholecystectomy. OBSTETRIC HISTORY: In 07/2019, 40-week normal vaginal delivery, male, 7.5 pounds, no complications. REVIEW OF SYSTEMS: She denies any chest pain, palpitations, cough, fever, shortness of breath, or lower extremity pain. She denies any flank pain. PHYSICAL EXAMINATION: VITAL SIGNS: Blood pressure is 117/80, heart rate 99, respirations 18, temperature is 98.2, pulse ox is 95% on room air, weight is 232 pounds. HEENT: Oropharynx and sclerae clear. LUNGS: Clear to auscultation bilaterally. HEART: Regular rate and rhythm. ABDOMEN: Gravid, consistent with 7.25 pounds. PELVIC: Per RN notes is 5 cm, 80%, -2, vertex, intact. EXTREMITIES: Nontender. SKIN: No gross rashes or lesion. NEUROLOGIC: No focal deficit. Category 1 tracing. ASSESSMENT AND PLAN: Intrauterine at 38 weeks and 6 days, gestational diabetes mellitus class A1, well controlled. Labor. Anticipate spontaneous vaginal delivery. Informed consent was obtained. The patient was made aware of the risks, complications, alternatives, and benefits of the proposed procedure, and she agrees. She is aware of the risk of operative vaginal delivery and delivery and agrees with these modes of delivery if indicated. DT: 12:51:48 TT: 13:00:00 Ref: [id number] - TID: [id number]
[2025-09-25 14:37] LABS: Syphilis Nonreactive (Nonreactive)
[2025-09-25 14:58] LABS: Basophils # (Auto) 0.0 Thou/mm3 (0.0-0.2); Basophils % (Auto) 0 % (0-2.5); Eosinophils # (Auto) 0.1 Thou/mm3 (0.0-0.5); Eosinophils % (Auto) 1 % (0-10); Hematocrit 35.8 % (36.0-46.0); Hemoglobin 12.2 g/dL (12.0-16.0); Immature Granulocytes Auto 0.04 Thou/mm3 (0.00-0.00); Lymphocytes # (Auto) 1.9 Thou/mm3 (1.0-4.8); Lymphocytes % (Auto) 19 % (10-50); Mean Corpuscular HGB Conc 34.1 g/dl (31.0-37.0); Mean Corpuscular Hemoglobin 29.8 pg (25.0-35.0); Mean Corpuscular Volume 87 fL (80-100); Monocytes # (Auto) 0.8 Thou/mm3 (0.0-0.8); Monocytes % (Auto) 8 % (0-12); Neutrophils # (Auto) 6.9 Thou/mm3 (1.8-7.7); Neutrophils % (Auto) 71 % (37-80); Nucleated Red Blood Cell # 0.00 Thou/mm3 (0.00-0.00); Nucleated Red Blood Cell % 0 /100 WBC (0); Platelet Count 373 Thou/mm3 (140-440); RDW Standard Deviation 44.3 fL (36.4-46.3); Red Blood Count 4.10 Miln/mm3 (4.00-5.20); White Blood Count 9.7 Thou/mm3 (3.6-11.0)
[2025-09-25 15:21] LABS: Amphetamine/Metham Scrn,Ur OB Negative (Negative); Benzoylecgonine Screen, Ur OB Negative (Negative); Opiate Screen,Urine OB Negative (Negative); THC Screen,Urine OB Negative (Negative)
[2025-09-25] MEDS: OXYTOCIN in NS 30 units 30 UNIT/500 ML BAG IV (16:06)
[2025-09-25 16:12] LABS: Hepatitis B Surface Antigen Non Reactive (Non React); Rubella, IgG Antibody NonReact(Not Immune)
[2025-09-25 16:24] LABS: HIV (1&2) Antibody Rapid Non-Reactive
--- NOTE | 2025-09-25 16:57 | PD.LDHP ---
Documentation for date of: 09/25/25 OB Labor/Induct. HPI History of Present Illness : 2 Para: 1 Term pregnancies: 1 pregnancies: 0 Living children: 1 History of Abortions: Spontaneous and Elective: 0 History of Vaginal deliveries: 1 History of sections: No History of : No Date of last menstrual period: 12/27/24 GINGER: 10/03/25 Gestational age based on last menstrual period: 37 History of present illness: Dictated STAT line in [facility] #9: [id number] History of Present Adequate Care: Yes Labs Labs: Negative: RPR, Chlamydia, Gonorrhea and Group Beta Strep and Unknown: Hepatitis B, Rubella Titre, HIV, Herpes Type 1, Herpes Type 2 and Covid-19 Past Medical History Surgical History SURGICAL: Negative Section Meds Home Medications and Allergies Home Medications ?Medication ?Instructions ?Recorded ?Confirmed ?Type lpyhymy-hraa-MH 40 mg-1 1 tab PO .PO 08/26/25 08/26/25 History mg chewable tablet Allergies Allergy/AdvReac Type Severity Reaction Status Date / Time No Known Allergies Allergy Verified 09/25/25 12:16 OB Exam Physical Exam Vital signs: Temp Pulse Resp BP Pulse Ox 98.2 F 88 18 103/63 100 09/25/25 11:44 09/25/25 14:56 09/25/25 11:44 09/25/25 14:56 09/25/25 16:53 OB Results Labs 09/25/25 14:40 Labs: Short CBC 09/25/25 Range/Units 14:40 WBC 9.7 (3.6-11.0) Thou/mm3 Hgb 12.2 (12.0-16.0) g/dL Hct 35.8 L (36.0-46.0) % Plt Count 373 (140-440) Thou/mm3
[2025-09-25] MEDS: OXYTOCIN in NS 20 units 20 UNIT/1,000 ML BAG 125 UNIT IV (18:08)
--- NOTE | 2025-09-25 18:20 | PD.LDDS ---
DS: Providers Provider Date of admission: 09/25/25 12:32 Primary care physician: Scot Torres MD Admitting Provider: Yeison Garcia MD Attending Provider on Admission: Yeison Garcia MD Attending Provider on DC: Yeison Garcia MD Discharging Provider: Yeison Garcia MD DS: Diagnosis Problem List Completed Was Problem List Reviewed/Reconciled?: Yes Summary/Hosp Course Brief History: Dictated STAT line in [facility] #9: [id number] Time Spent with Patient Time attestation: Total time spent providing and/or coordinating discharge services: Exam Vital Signs Temp Pulse Resp BP Pulse Ox 98.2 F 87 18 132/92 H 100 09/25/25 11:44 09/25/25 17:09 09/25/25 11:44 09/25/25 17:09 09/25/25 18:07 Discharge Plan Plan Patient Disposition: HOME (Self Care) Patient condition on transfer: Stable Prescriptions/Referrals Prescriptions/Med Rec: New ibuprofen 600 mg tablet 600 mg PO Q6H PRN (Reason: pain) Qty: 30 0RF Continued lpakjhl-oruc-XO 40-1 mg tablet,chewable 1 tab PO .PO Referrals: Scot Torres MD [Primary Care Provider, Family Practice] Patient/Caregiver Discharge Instructions Discharge Activity: activity as tolerated Other Discharge Activity Instructions:: Follow up office 6 weeks. Education Materials: After a Vaginal , Nutrition While , Understanding Depression, : Caring for Yourself Print Language: Mongolian Activity Restrictions/Additional Instructions: Cynthia july con [place] doctor en seis semanas Stand Alone Forms: Jennifer Award Info., Patient Portal Info Letter Discharge Order Discharge Orders: Discharge (Routine); Ordered 09/26/25 Ordered By: Yeison Garcia Planned Discharge Date 09/26/25
[2025-09-25] MEDS: IBUPROFEN TAB 400 MG TABLET 800 MG PO (18:22)
[2025-09-26 00:07] LABS: Basophils # (Auto) 0.0 Thou/mm3 (0.0-0.2); Basophils % (Auto) 0 % (0-2.5); Eosinophils # (Auto) 0.0 Thou/mm3 (0.0-0.5); Eosinophils % (Auto) 0 % (0-10); Hematocrit 33.3 % (36.0-46.0); Hemoglobin 11.3 g/dL (12.0-16.0); Immature Granulocytes Auto 0.05 Thou/mm3 (0.00-0.00); Lymphocytes # (Auto) 1.4 Thou/mm3 (1.0-4.8); Lymphocytes % (Auto) 9 % (10-50); Mean Corpuscular HGB Conc 33.9 g/dl (31.0-37.0); Mean Corpuscular Hemoglobin 29.5 pg (25.0-35.0); Mean Corpuscular Volume 87 fL (80-100); Monocytes # (Auto) 0.9 Thou/mm3 (0.0-0.8); Monocytes % (Auto) 5 % (0-12); Neutrophils # (Auto) 13.9 Thou/mm3 (1.8-7.7); Neutrophils % (Auto) 86 % (37-80); Nucleated Red Blood Cell # 0.00 Thou/mm3 (0.00-0.00); Nucleated Red Blood Cell % 0 /100 WBC (0); Platelet Count 364 Thou/mm3 (140-440); RDW Standard Deviation 44.6 fL (36.4-46.3); Red Blood Count 3.83 Miln/mm3 (4.00-5.20); White Blood Count 16.3 Thou/mm3 (3.6-11.0)
[2025-09-26 00:09] VITALS: BP 116/76; RESP 18; TEMP 36.9; O2SAT 97
[2025-09-26] MEDS: IBUPROFEN TAB 400 MG TABLET 800 MG PO ×2 (00:18→11:58)
[2025-09-26 03:37] VITALS: BP 102/65; RESP 16; TEMP 36.8; O2SAT 98
--- NOTE | 2025-09-26 06:03 | ESPR_ITS ---
RE: JAYNE TSE : 2000 DATE OF SERVICE: 09/26/2025 SUBJECTIVE: day #1, patient denies any problem or complaints. She is voiding and ambulating and tolerating a regular diet and passing flatus and she denies any excessive vaginal bleeding. She denies any dizziness or lightheadedness. She denies any chest pain, palpitations, shortness of breath, or lower extremity pain. OBJECTIVE: VITAL SIGNS: Blood pressure 102/65, heart rate 88, respirations 16, temperature is 98.3, pulse ox is 98% on room air. LUNGS: Clear to auscultation bilaterally. HEART: Regular rate and rhythm. ABDOMEN: Fundus is firm. EXTREMITIES: Nontender. Hemoglobin pre-delivery is 12.2, post-delivery is 11.3. ASSESSMENT: day #1 status post spontaneous vaginal delivery. PLAN: Discharge home when baby is cleared, discharge instructions given. Follow up in the office in 6 weeks. DT: 05:25:37 TT: 06:02:00 Ref: [id number] - TID: [id number]
[2025-09-26 08:00] VITALS: BP 112/63; PULSE 84; RESP 18; TEMP 36.9; O2SAT 97
[2025-09-26] MEDS: DOCUSATE SOD 100 MG CAPSULE PO (08:51)
[2025-09-26 12:00] VITALS: BP 118/65; PULSE 79; RESP 17; TEMP 37.1; O2SAT 98
--- NOTE | 2025-09-26 16:19 | PC.SS ---
ACID DUMPER conducted bedside contact with the patient to address nursing referral indicating patient was late to care (19 weeks).? ACID DUMPER utilized translation services to assist with the discussion.? ACID DUMPER introduced self and role.? ACID DUMPER reviewed basis of referral.? Patient confirmed late to care due to inability to access provider prior to 12 week timeline.? Barrier shortage of providers in local area.? Once established patient obtained OB services from Dr. Garcia.? Patient reports consistency with OB appointments.? , Anat; is the patient?s second child.? Other child is 6 years old.? delivered naturally.? Patient plans on combo feeding the infant.? Patient is receiving WIC.? Not receiving SNAP or TANF.? Patient denies history of alcohol/drug abuse.? Patient denies CWS intervention.? Patient denies episodes of domestic violence.? Patient denies possessing a history of mental health, reports no current possession of depression or anxiety.? Patient reports possessing appropriate supplies and equipment; to include a car seat.? FOB, Juan Corea; will provide transportation upon discharge.? Patient describes possessing support system consisting of FOB and extended family.? ACID DUMPER provided the patient with community resources to include Parenting Network and Warm Line.? No further intervention required at this time, psych social worker will be available to address any further concerns.? ACID DUMPER updated bedside nurse.?
[2025-09-26 19:52] VITALS: BP 115/76; PULSE 86; RESP 16; TEMP 36.6; O2SAT 98
--- NOTE | 2025-09-30 07:41 | PD.LDDELS ---
Data (José) Data Hx Section: No : 2 Term: 1 : 0 Livin Abortions: Spontaneous & Theraputic: 0 Delivery Data (José) Labor Data Initiation of labor: Augmentation Induction/Augmentation Agent: Pitocin ROM date: 09/25/25 ROM time: 17:00 Amniotic membrane rupture type: Artificial Amniotic fluid description: Clear Delivery Data Onset of labor date: 09/25/25 Onset of labor time: 17:00 Complete dilation date: 09/25/25 Complete dilation time: 18:00 [place] delivery date: 09/25/25 delivery time: 18:08 Placenta delivery date: 09/25/25 Placenta delivery time: 18:13 Stage 1 total time: Labor - Stage 1 Duration 1 hours and 0 minutes Delivered by: Yeison Garcia Delivery Method Delivery method: Normal Vaginal Delivery Presentation: Vertex Anesthesia Type Anesthesia Type: None Placenta Placenta delivery description: Spontaneous Cord blood sent to lab: Yes cord blood collection: Cord Blood Type Episiotomy Episiotomy description: None Umbilical Cord cord description: 3 Vessels Data (José) [place] Data order: 1 's gender: Male Identification band number: [id number] weight (gms): 8 lb 2.866 oz Weight (pounds): 8 lbs and 2.9 ozs [place] length: 21.5 in 1 minute: 8 5 minutes: 9
== END 2025-09-26 20:36 | disposition home or self-care (01) | DRG 560 ==
LOC: S4SX 18:41 → S4NX 21:01
PROVIDERS: Admitting Provider Specialist; PCP Family Medicine; Visit Provider Specialist
DX: O24.420 Gestational diabetes mellitus in childbirth, diet controlled (principal); Z3A.38 38 weeks gestation of pregnancy; Z37.0 Single live birth
CPT/HCPCS: 36415; 59409; 80307; 85025; 86703; 86762; 86780; 86850; 86900; 86901; 87340; 94762; J2590; J7120; A9270